=== PATIENT | female | born 1965 | race African-American/Black ===

== ENCOUNTER 2018-01-15 01:11 | Emergency (ER) | payer OTHER ==
[2007-09-29 21:21] VITALS: BP 114/61
[~2018-01-15] VITALS: Ht 167.6 cm; Wt 72.7 kg
[~2018-01-15 01:11] MED LIST: LOPRESSOR; LORTAB PO; NIFEREX-150 FOR1 CA1 PO; ZOFRAN4 MG PO; [UNRECOGNIZED DRUG - REMARK]
[2018-01-15 01:13] VITALS: TEMP 97
[2018-01-15 01:39] LABS: BASO # 0.1 (0.0-0.2); BASO % 0.6 % (0.0-2.0); EOS % 0.4 % (0-4.0); GRAN # 8.4 (1.4-6.5); GRAN % 82.7 % (42.2-75.2); HEMATOCRIT 29.5 % (37.0-47.0); HEMOGLOBIN 8.9 g/dl (12.5-16.0); LYMPH # 1.1 (1.2-3.4); LYMPH % 11.2 % (20.0-51.0); MEAN CELL VOLUME 74 fl (80.0-100.0); MEAN CORPUSCULAR HEMOGLOBIN 22 pg (27.0-31.0); MEAN CORPUSCULAR HGB CONC 30 g/dl (33.0-37.0); MEAN PLATELET VOLUME 10.5 fl (7.4-10.4); MONO # 0.5 (0.1-0.6); MONO % 4.8 % (1.7-9.3); PLATELET COUNT 217 K/mm3 (130-400); RED BLOOD COUNT 4.01 M/mm3 (4.10-5.30); REDCELL DISTRIBUTION WIDTH-CV 18.8 % (11.5-14.5)
[2018-01-15 01:47] LABS: ALBUMIN 4.4 gm/dL (3.5-5.0); BILIRUBIN,TOTAL 0.3 mg/dL (0.0-1.0); C-REACTIVE PROTEIN 1.7 mg/dL (0.0-0.9); CALCIUM 9.1 mg/dL (8.4-10.2); CREATININE, serum 0.88 mg/dL (0.52-1.25); POTASSIUM 3.1 mmol/L (3.4-5.0); TOTAL PROTEIN 8.6 gm/dL (6.4-8.2)
[2018-01-15] MEDS ORDERED: TOPAMAX 25MG25 M1 PO (01:47)
[2018-01-15] MEDS ORDERED: LOPRESSOR 550 MG/TAB PO (01:48)
[2018-01-15] MEDS ORDERED: FIORINAL 325 MG1 CAP PO (01:48)
[2018-01-15] MEDS ORDERED: ULTRAM 50MG TAB50 MG PO (01:48)
[2018-01-15] MEDS ORDERED: NORCO 325 MG-101 TAB PO (01:48)
[2018-01-15] MEDS ORDERED: PHENERGAN25 MG RC (02:46)
[2018-01-15] MEDS ORDERED: PHENERGAN 25 TA25 MG PO (02:46)
[2018-01-15 02:56] VITALS: BP 141/59; PULSE 58
== END 2018-01-15 03:20 | disposition home or self-care (01) ==
LOC: COL.ER 01:11
PROVIDERS: Nurse Practitioner
DX: R19.7 Diarrhea, unspecified (principal); R11.10 Vomiting, unspecified; R10.13 Epigastric pain; I10 Essential (primary) hypertension; Z98.84 Bariatric surgery status; Z90.49 Acquired absence of other specified parts of digestive tract; Z90.710 Acquired absence of both cervix and uterus; Z79.82 Long term (current) use of aspirin
CPT/HCPCS: J1200; J2550; J2765; J7030

== ENCOUNTER → 2020-05-28 | Outpatient (CLI) | payer OTHER ==
[~2020-05-28] MED LIST changes: +FIORINAL 325 MG1 CAP PO; +LOPRESSOR 550 MG/TAB PO; +NORCO 325 MG-101 TAB PO; +PHENERGAN 25 TA25 MG PO; +PHENERGAN25 MG RC; +TOPAMAX 25MG25 M1 PO; +ULTRAM 50MG TAB50 MG PO
== END ==
LOC: ZCOL.LAB 15:34
DX: Z20.828 Contact with and (suspected) exposure to other viral communicable diseases (principal)

== ENCOUNTER 2021-02-15 10:06 | Day surgery (SDC) | payer OTHER ==
[2007-09-29 21:21] VITALS: BP 114/61
[~2021-02-15] VITALS: Ht 167.6 cm; Wt 117.0 kg
[2021-02-15] VITALS (9 sets, daily range): BP systolic 132–160; BP diastolic 79–100; PULSE 59–76; TEMP 98.4
[2021-02-15 10:58] LABS: MEAN CELL VOLUME 70 fl (80.0-100.0); MEAN CORPUSCULAR HGB CONC 29 g/dl (33.0-37.0); MEAN PLATELET VOLUME 9.7 fl (7.4-10.4); PLATELET COUNT 349 K/mm3 (130-400); RED BLOOD COUNT 3.98 M/mm3 (4.10-5.30); REDCELL DISTRIBUTION WIDTH-CV 20.7 % (11.5-14.5)
[2021-02-15] MEDS ORDERED: PRILOSEC 20MG20 MG PO (10:59)
[2021-02-15] MEDS ORDERED: VITAMIN B12 781 TAB PO (10:59)
[2021-02-15 11:00] LABS: HEMOGLOBIN 8.2 g/dl (12.5-16.0); MEAN CORPUSCULAR HEMOGLOBIN 21 pg (27.0-31.0)
[2021-02-15 11:06] LABS: PROTHROMBIN TIME 11.2 SECONDS (9.7-12.8)
[2021-02-15 11:08] LABS: CREATININE, serum 0.65 (0.52-1.25); PARTIAL THROMBOPLASTIN TIME 30.6 SECONDS (26.0-37.0); POTASSIUM 3.8 mmol/L (3.4-5.0)
[2021-02-15] MEDS ORDERED: HYZAAR 12.5 MG-1 TAB PO (11:28)
[2021-02-15] MEDS ORDERED: ZANAFLEX CAPSULE4 MG PO (11:28)
[2021-02-15] MEDS ORDERED: AMBIEN 5MG TABLE5 MG PO (11:28)
[2021-02-15] MEDS ORDERED: CELEBREX 1100 MG/CAP PO (11:29)
[2021-02-15] MEDS ORDERED: PROAIR HFA0.09 MG/AC IH (11:29)
[2021-02-15] MEDS ORDERED: ZOLOFT 25MG25 MG PO (11:29)
--- NOTE | 2021-02-15 15:00 | NUR ---
Air has been removed from TR band in 2ml increments with no bleeding or complication. Rt radial puncture site dressed with 2x2 and bandaid. DC instructions reviewed with pt and , both express understanding. Pt has been steady on feet while up to use restroom. She does report some dizziness with initial position changes, but this resolves shortly after standing. 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 IV DC'd with catheter intact. She is assisted out by wheelchair to 's car.
== END 2021-02-15 17:45 | disposition home or self-care (01) ==
LOC: COL.CAR 10:06
PROVIDERS: Internal Medicine Cardiovascular Disease
DX: R07.9 Chest pain, unspecified (principal); I10 Essential (primary) hypertension; E66.9 Obesity, unspecified; Z20.822 Contact with and (suspected) exposure to COVID-19
CPT/HCPCS: J1644; J2250; J3010; J7030; Q9967

== ENCOUNTER 2023-03-31 14:12 | Outpatient (RCR) | payer MEDICARE, OTHER ==
[2007-09-29 21:21] VITALS: BP 114/61
[~2023-03-31] VITALS: Ht 167.6 cm; Wt 108.2 kg
[~2023-03-31 14:12] MED LIST changes: +AMBIEN 5MG TABLE5 MG PO; +CELEBREX 1100 MG/CAP PO; +HYZAAR 12.5 MG-1 TAB PO; +PRILOSEC 20MG20 MG PO; +PROAIR HFA0.09 MG/AC IH; +VITAMIN B12 781 TAB PO; +ZANAFLEX CAPSULE4 MG PO; +ZOLOFT 25MG25 MG PO
[2023-03-31 14:31] VITALS: BP 138/77; PULSE 97; TEMP 98.6
[2023-03-31] MEDS ORDERED: PREDNISONE20 MG PO (14:48)
[2023-03-31] MEDS ORDERED: GLUCOPHAGE XR500 M1 PO (14:48)
[2023-03-31] MEDS ORDERED: BUSPAR5 MG PO (14:48)
[2023-03-31] MEDS ORDERED: ZYLOPRIM 100MG100 MG PO (14:49)
[2023-03-31] MEDS ORDERED: CYMBALTA 60MG60 MG PO (14:49)
[2023-03-31] MEDS ORDERED: NEURONTIN300 MG/CAP PO (14:50)
[2023-03-31] MEDS ORDERED: NORVASC 10MG10 MG PO (14:50)
[2023-03-31] MEDS ORDERED: TESSALON P100 MG/CAP PO (14:52)
[2023-03-31] MEDS ORDERED: LASIX 20MG TABL20 MG PO (14:52)
--- NOTE | 2023-03-31 15:32 | NUR ---
Pt remained in dept for monitoring following initial venofer infusion. Pt tolerated infusion without issue. IV DC'd, site wrapped with coban and pt exits dept with steady gait.
== END 2023-04-01 ==
LOC: EUO
DX: D50.9 Iron deficiency anemia, unspecified (principal)
CPT/HCPCS: J1756